=== PATIENT | male | born 1990 | race Caucasian/White ===

== ENCOUNTER 2016-08-14 07:35 | Emergency (ER) | payer SELFPAY ==
[~2016-08-14] VITALS: Ht 182.9 cm; Wt 80.0 kg
[2016-08-14 07:54] VITALS: BP 123/85
== END 2016-08-14 08:34 ==
LOC: EME 07:35
DX: F18.10 Inhalant abuse, uncomplicated (principal); Z02.89 Encounter for other administrative examinations
CPT/HCPCS: 99281; 99284